=== PATIENT | female | born 1975 | race Caucasian/White ===

== ENCOUNTER 2019-02-02 00:03 | Emergency (ER) | payer OTHER ==
[~2019-02-02] VITALS: Ht 167.6 cm; Wt 83.5 kg
[~2019-02-02 00:03] MED LIST: ACET500C5 PO; NEOM28OI2 TP
[2019-02-02 00:07] VITALS: Ht 167.6 cm; Wt 83.5 kg
[2019-02-02] MEDS ORDERED: ONDANSETRON (ODT) 4 MG TAB ODT STA (02:22)
[2019-02-02] MEDS ORDERED: HYDROCODONE/APAP (10/325) TAB PO ONE (02:30)
[2019-02-02] MEDS ORDERED: NEOMYC/POLYMYX/BACIT 30 GM OINT TOP ONE (03:30)
[2019-02-02 04:31] VITALS: BP 128/72; PULSE 89; RESP 17
== END 2019-02-02 04:31 | disposition home or self-care (01) ==
LOC: FTE 00:03
DX: O9A.212 Injury, poisoning and certain other consequences of external causes complicating pregnancy, second trimester (principal); T21.22XA Burn of second degree of abdominal wall, initial encounter; T24.211A Burn of second degree of right thigh, initial encounter; X10.2XXA Contact with fats and cooking oils, initial encounter; Y92.9 Unspecified place or not applicable; Z3A.21 21 weeks gestation of pregnancy
CPT/HCPCS: Z7502; Z7610; 99283

== ENCOUNTER 2019-02-02 04:35 | Outpatient (CLI) | payer OTHER ==
[~2019-02-02] VITALS: Ht 167.6 cm; Wt 82.3 kg
[2019-02-02 05:48] VITALS: BP 112/62; PULSE 84; RESP 16
== END 2019-02-02 05:35 | disposition home or self-care (01) ==
LOC: OBT 04:35 → L-D 04:35 → OBT 05:35
PROVIDERS: ATTEND Obstetrics & Gynecology
DX: O26.892 Other specified pregnancy related conditions, second trimester (principal); R10.2 Pelvic and perineal pain; O34.219 Maternal care for unspecified type scar from previous cesarean delivery; O09.522 Supervision of elderly multigravida, second trimester; Z3A.20 20 weeks gestation of pregnancy
CPT/HCPCS: G0463